=== PATIENT | female | born 1960 | race Caucasian/White ===

== ENCOUNTER 2017-06-04 10:45 | Emergency (ER) | payer OTHER ==
[~2017-06-04 10:45] MED LIST: ATA10 PO; AUGMENTIN1 TA2 GT; DIL100 PO; HAL1 PO; HALOPERIDOL2 MG PO; HYDROXYZ PO; LAC GT; LEVOTHYROXIN0.125 M2 PO; MULTI VITAMINS1 TA1 PO; PHENYTOIN100 M1 PO; PRILOSEC20 MG PO; SYN25 PO; TOBOO; VITAMIN C500 M4 PO; VITC PO; [UNRECOGNIZED DRUG - OTHER] PO
[2017-06-04 10:58] VITALS: BP 110/54
== END 2017-06-04 11:40 | disposition home or self-care (01) ==
LOC: ED 10:45
DX: S00.91XA Abrasion of unspecified part of head, initial encounter (principal); E03.9 Hypothyroidism, unspecified; X83.8XXA Intentional self-harm by other specified means, initial encounter; Y93.89 Activity, other specified; Y99.8 Other external cause status; Y92.89 Other specified places as the place of occurrence of the external cause

== ENCOUNTER 2017-07-08 11:52 | Emergency (ER) | payer OTHER ==
[~2017-07-08] VITALS: Ht 157.5 cm; Wt 68.0 kg
[2017-07-08 11:57] VITALS: BP 104/67
== END 2017-07-08 13:29 | disposition home or self-care (01) ==
LOC: ED 11:52
DX: S09.90XA Unspecified injury of head, initial encounter (principal); W22.8XXA Striking against or struck by other objects, initial encounter; Y93.89 Activity, other specified; Y92.89 Other specified places as the place of occurrence of the external cause; Y99.8 Other external cause status

== ENCOUNTER 2017-07-16 10:02 | Emergency (ER) | payer OTHER ==
[~2017-07-16] VITALS: Ht 154.9 cm; Wt 59.0 kg
[2017-07-16 10:06] VITALS: Ht 154.9 cm; Wt 59.0 kg
[2017-07-16 11:25] VITALS: BP 112/70
== END 2017-07-16 11:25 | disposition home or self-care (01) ==
LOC: ED 10:02
DX: S09.90XA Unspecified injury of head, initial encounter (principal); W22.8XXA Striking against or struck by other objects, initial encounter; Y93.89 Activity, other specified; Y92.89 Other specified places as the place of occurrence of the external cause; Y99.8 Other external cause status

== ENCOUNTER 2017-07-27 12:56 | Emergency (ER) | payer OTHER ==
[~2017-07-27] VITALS: Ht 137.2 cm; Wt 61.2 kg
[2017-07-27 13:02] VITALS: Ht 137.2 cm; Wt 61.2 kg
[2017-07-27 15:46] VITALS: BP 111/65
== END 2017-07-27 15:46 | disposition home or self-care (01) ==
LOC: ED 12:56
DX: S09.90XA Unspecified injury of head, initial encounter (principal); Q90.9 Down syndrome, unspecified; F79 Unspecified intellectual disabilities; E03.9 Hypothyroidism, unspecified; H54.7 Unspecified visual loss; W22.8XXA Striking against or struck by other objects, initial encounter; Y93.89 Activity, other specified; Y92.89 Other specified places as the place of occurrence of the external cause; Y99.8 Other external cause status

== ENCOUNTER 2018-12-31 14:06 | Emergency (ER) | payer OTHER ==
[~2018-12-31] VITALS: Ht 154.9 cm; Wt 42.6 kg
[2018-12-31 14:31] VITALS: Ht 154.9 cm; Wt 42.6 kg
[2018-12-31 16:12] VITALS: BP 128/82
== END 2018-12-31 16:12 | disposition home or self-care (01) ==
LOC: ED 14:06
DX: S09.8XXA Other specified injuries of head, initial encounter (principal); E05.90 Thyrotoxicosis, unspecified without thyrotoxic crisis or storm; W22.8XXA Striking against or struck by other objects, initial encounter; Y93.89 Activity, other specified; Y92.89 Other specified places as the place of occurrence of the external cause; Y99.8 Other external cause status

== ENCOUNTER 2019-01-31 13:23 | Emergency (ER) | payer OTHER ==
[~2019-01-31] VITALS: Ht 152.4 cm; Wt 68.0 kg
[2019-01-31 13:40] VITALS: Ht 152.4 cm; Wt 68.0 kg
[2019-01-31 16:34] VITALS: BP 131/84
== END 2019-01-31 16:34 | disposition home or self-care (01) ==
LOC: ED 13:23
DX: S09.8XXA Other specified injuries of head, initial encounter (principal); F79 Unspecified intellectual disabilities; Q90.9 Down syndrome, unspecified; W22.8XXA Striking against or struck by other objects, initial encounter; Y93.89 Activity, other specified; Y92.89 Other specified places as the place of occurrence of the external cause; Y99.8 Other external cause status

== ENCOUNTER 2019-03-10 10:28 | Emergency (ER) | payer OTHER ==
[~2019-03-10] VITALS: Ht 147.3 cm; Wt 42.6 kg
[2019-03-10 10:34] VITALS: Ht 147.3 cm; Wt 42.6 kg
[2019-03-10 12:03] VITALS: BP 101/52
== END 2019-03-10 12:03 | disposition home or self-care (01) ==
LOC: ED 10:28
DX: S09.8XXA Other specified injuries of head, initial encounter (principal); S00.83XA Contusion of other part of head, initial encounter; F79 Unspecified intellectual disabilities; E05.90 Thyrotoxicosis, unspecified without thyrotoxic crisis or storm; Q90.9 Down syndrome, unspecified; W22.8XXA Striking against or struck by other objects, initial encounter; Y93.89 Activity, other specified; Y92.89 Other specified places as the place of occurrence of the external cause; Y99.8 Other external cause status